=== PATIENT | female | born 1980 | race African-American/Black ===

== ENCOUNTER 2024-04-06 20:51 | Emergency (ER) | payer MEDICAID ==
[~2024-04-06] VITALS: Ht 162.6 cm; Wt 64.0 kg
[2024-04-06 20:58] VITALS: O2SAT 98
[2024-04-06] MEDS ORDERED: ACETAMINOPHEN 325MG TABLET PO STA (21:11)
[2024-04-06] MEDS ORDERED: KETOROLAC 30MG/ML VIAL IM STA (21:11)
[2024-04-06] MEDS ORDERED: ONDANSETRON 4MG ODT PO STA (21:11)
[2024-04-06] MEDS ORDERED: PANTOPRAZOLE 40MG DR TABLET PO ONE (21:15)
[2024-04-06] MEDS ORDERED: MAGNESIUM/ALUMINUM HYDROXIDE/SIMETHICONE 30ML UDC PO ONE (21:15)
[2024-04-06] MEDS ORDERED: ALBUTEROL (0.5%) 2.5MG/0.5ML NEB HHN ONE (21:30)
[2024-04-06] MEDS ORDERED: DEXAMETHASONE 0.5MG/5ML ORAL SYR PO ONE (21:30)
[2024-04-06] MEDS ORDERED: ALBUTEROL (0.5%) 2.5MG/0.5ML NEB HHN NR (21:45)
[2024-04-06 22:19] LABS: CHLORIDE 109 mEq/L (98-107); SODIUM 145 mEq/L (136-145)
[2024-04-06 22:20] LABS: CALCIUM 10.3 mg/dL (8.7-10.4); CARBON DIOXIDE 19 mEq/L (21-32)
[2024-04-06 22:25] LABS: CREATININE 0.7 mg/dL (0.6-1.0); GLUCOSE 112 mg/dL (70-105); HCG SCREEN NEGATIVE; UREA NITROGEN BLOOD 11 mg/dL (9-23)
[2024-04-06 22:27] LABS: ALANINE AMINOTRANSFERASE 40 IU/L (10-49); ASPARTATE AMINOTRANSFERASE 66 IU/L (<34); TROPONIN I HIGH SENSITIVITY 10 ng/L (3.0-34)
[2024-04-06 22:28] LABS: BILIRUBIN TOTAL < 0.2 mg/dL (0.1-1.0); PROTEIN TOTAL 8.2 g/dL (6.0-8.3)
[2024-04-06 22:38] LABS: BILIRUBIN DIRECT < 0.1 mg/dL (<=3.0)
[2024-04-06 22:52] LABS: EOSINOPHILS % 1.2 % (0.0-5.0); HEMATOCRIT. 36.9 % (36.0-48.0); HEMOGLOBIN. 11.8 g/dL (12.0-16.0); LYMPHOCYTES % 31.4 % (20.0-50.0); MEAN CORPUSCULAR HEMOGLOBIN 26.5 pg (28.0-32.0); MEAN CORPUSCULAR HGB CONC 31.9 g/dL (31.0-37.0); MEAN PLATELET VOLUME 8.7 fl (7.4-10.4); MONOCYTES % 6.3 % (2.0-8.0); NEUTROPHILS % 60.1 % (40.0-76.0); PLATELET 166 x1000/uL (130-400); RED BLOOD CELL COUNT 4.45 mill/uL (4.2-5.4); RED CELL DISTRIBUTION WIDTH 13.7 % (11.6-14.6); WHITE BLOOD COUNT 6.7 x1000/uL (4.5-11.0)
[2024-04-06] MEDS: PANTOPRAZOLE 40MG DR TABLET PO NR (22:59)
[2024-04-06] MEDS: DEXAMETHASONE 10 MG/ML VIAL PO NR (22:59)
[2024-04-06] MEDS: ONDANSETRON 4MG ODT PO NR (22:59)
[2024-04-06] MEDS: MAGNESIUM/ALUMINUM HYDROXIDE/SIMETHICONE 30ML UDC PO NR (22:59)
[2024-04-06] MEDS: KETOROLAC 30MG/ML VIAL IM NR (23:00)
[2024-04-06] MEDS: ACETAMINOPHEN 325MG TABLET PO NR (23:00)
[2024-04-07 00:27] VITALS: TEMP 36.8
[2024-04-07 01:55] LABS: TROPONIN I HIGH SENSITIVITY 10 ng/L (3.0-34)
[2024-04-07] MEDS ORDERED: MAGNESIUM 2 G PREMIX 50 ML IV NR (02:00)
[2024-04-07] MEDS ORDERED: IPRATROPIUM/ALBUTEROL 0.5-3(2.5)MG/3ML NEB HHN PRN (02:00)
[2024-04-07] MEDS ORDERED: LORAZEPAM 2MG/ML INJ IV PRN (02:00)
[2024-04-07] MEDS ORDERED: CLONIDINE 0.1MG TABLET PO PRN (02:00)
[2024-04-07] MEDS ORDERED: ACETAMINOPHEN 325MG TABLET PO PRN (02:00)
[2024-04-07] MEDS ORDERED: ONDANSETRON HCL 4MG/2ML INJ IV PRN (02:00)
[2024-04-07] MEDS ORDERED: MAGNESIUM/ALUMINUM HYDROXIDE/SIMETHICONE 30ML UDC PO PRN (02:00)
[2024-04-07] MEDS ORDERED: FOLIC ACID 1 MG, THIAMINE HCL 100 MG, MVI, ADULT NO.1 10 ML in DEXTROSE 5% WATER 1,000 ML IV ONE (03:30)
[2024-04-07 03:33] VITALS: BP 129/76; PULSE 100; RESP 16; O2SAT 96
[2024-04-07] MEDS ORDERED: KCL 10MEQ/50ML PREMIX 50 ML IV NR (04:00)
[2024-04-07] MEDS ORDERED: CHLORDIAZEPOXIDE 25MG CAPSULE PO SCH (06:00)
[2024-04-07] MEDS ORDERED: PANTOPRAZOLE 40MG DR TABLET PO SCH (07:50)
[2024-04-07] MEDS ORDERED: ENOXAPARIN 40MG/0.4ML SYR SUBCUT SCH (09:00)
[2024-04-07] MEDS ORDERED: THIAMINE HCL 100MG TABLET PO SCH (09:00)
== END 2024-04-07 03:42 | disposition home or self-care (01) ==
LOC: ER 20:51
DX: R06.02 Shortness of breath (principal); J45.909 Unspecified asthma, uncomplicated; I10 Essential (primary) hypertension; Z88.6 Allergy status to analgesic agent
CPT/HCPCS: 99285; 71045; 80076; 80048; 84703; 85025; 84484 ×2; 36415 ×2; 93005; 96372; 83690; 83735; J1885 ×2; Q0162 ×2; J1100 ×2; J3490 ×2; J3411; J7070; J3480; J8540